=== PATIENT | male | born 1995 | race Caucasian/White ===

== ENCOUNTER 2017-12-28 02:27 | Emergency (ER) | payer BC ==
[~2017-12-28] VITALS: Ht 208.3 cm; Wt 104.5 kg
[2017-12-28 08:19] VITALS: BP 109/53; PULSE 66
== END 2017-12-28 08:47 | disposition home or self-care (01) ==
LOC: COL.ER 02:27
DX: F10.129 Alcohol abuse with intoxication, unspecified (principal); Y90.8 Blood alcohol level of 240 mg/100 ml or more
CPT/HCPCS: J2405; J7030